=== PATIENT | male | born 1960 | race Caucasian/White ===

== ENCOUNTER 2018-12-19 10:30 | Outpatient (CLI) | payer OTHER ==
[~2018-12-19] VITALS: Ht 165.1 cm; Wt 81.6 kg
[~2018-12-19 10:30] MED LIST: ASP325TEC PO; ATOR80TA75 PO; BNZ40T PO; CARB200T PO; CARB200T5 PO; CARB200T6 PO; CARV6.252 PO; GABA300C PO; HYDR-34 PO; INSA10V1 SC; INSU100I14 SQ; INSU100I29 SQ; INSU100V16 SQ; INSU100V5 SQ; LORA10TA7 PO; METF-478 PO; METF500T4 PO; METF500T8 PO; METO-387 PO; MV,M1TAB4 PO; NIAC100045 PO; OMEG-9 PO; OMEP20CA12 PO; PHEN-633 PO; PHEN100C11 PO; RANI150T46 PO; TAMS0.4C2 PO; TAMS0.4C98 PO; TR1C15 TOP
[2018-12-19] MEDS ORDERED: MV,M1TAB4 PO (10:51)
[2018-12-19] MEDS ORDERED: ASPI-808 PO (10:51)
[2018-12-19] MEDS ORDERED: OMEG-9 PO (10:51)
[2018-12-19] MEDS ORDERED: CARB200T5 PO (10:51)
[2018-12-19] MEDS ORDERED: PHEN100C4 PO (10:51)
[2018-12-19] MEDS ORDERED: GABA-488 PO (10:51)
[2018-12-19] MEDS ORDERED: ATOR80TA76 PO (10:51)
[2018-12-19] MEDS ORDERED: OMEP20TA7 PO (10:51)
[2018-12-19] MEDS ORDERED: INSU100I29 SQ (10:51)
== END 2018-12-19 10:56 ==
LOC: PREOP 10:30
PROVIDERS: ATTEND Specialist
DX: Z01.818 Encounter for other preprocedural examination (principal)

== ENCOUNTER 2018-12-21 06:12 | Day surgery (SDC) | payer OTHER ==
[~2018-12-21] VITALS: Ht 165.1 cm; Wt 81.6 kg
[~2018-12-21 06:12] MED LIST changes: +ASPI-808 PO; +ATOR80TA76 PO; +GABA-488 PO; +OMEP20TA7 PO; +PHEN100C4 PO
--- OUTSIDE RECORDS SUMMARY | 2018-12-21 06:16 | XMS REPORT | Continuity of Care Document ---
Author Organization Unknown Address Unknown Allergies Active Description Code Type Severity Reaction Onset Reported/Identified Relationship to Patient Clinical Status Yes iodine [id number] Drug Allergy Unknown N/A 09/30/2015 Yes levofloxacin [id number] Drug Allergy Unknown N/A 09/30/2015 Yes Penicillins [id number] Drug Allergy Unknown N/A 09/30/2015 Medications There is no data. Problems Date Dx Coded Attending Type Code Diagnosis Diagnosed By 05/30/2013 VIC ALLEN MD Ot 185 MALIGN NEOPL PROSTATE 05/30/2013 VIC ALLEN MD Ot V58.0 ENCOUNTER FOR RADIOTHERAPY 08/29/2013 VIC ALLEN MD Ot 185 MALIGN NEOPL PROSTATE 08/29/2013 VIC ALLEN MD Ot V58.0 ENCOUNTER FOR RADIOTHERAPY 09/11/2014 VIC ALLEN MD Ot 185 09/11/2014 VIC ALLEN MD Ot V58.0 09/17/2014 Ot 959.4 09/17/2014 Ot E000.8 09/17/2014 Ot E849.0 09/17/2014 Ot E928.9 09/17/2014 VIC ALLEN MD Ot 185 09/17/2014 VIC ALLEN MD Ot V58.0 09/17/2014 VIC ALLEN MD Ot 185 09/17/2014 VIC ALLEN MD Ot V58.0 09/17/2014 VIC ALLEN MD Ot 185 09/17/2014 VIC ALLEN MD Ot V58.0 09/19/2014 SAILAJA HILARIO DO Ot 250.02 DIAB ELFEGO WO COMPL, TYPE II OR UNSPEC TY 09/19/2014 SAILAJA HILARIO DO Ot 272.4 HYPERLIPIDEMIA NEC/NOS 09/19/2014 SAILAJA HILARIO DO Ot 414.00 CORON ATHEROSCLER NOS TYPE VESSEL, NATIV 09/19/2014 SAILAJA HILARIO DO Ot V03.82 PROPHYLACTIC VACC AGAINST STREPTOCOCCUS 09/19/2014 SAILAJA HILARIO DO Ot V10.46 HX-PROSTATIC MALIGNANCY 09/19/2014 [facility], SAILAJA Martinez Ot 250.02 09/19/2014 [facility], SAILAJA Juan Ot 272.4 09/19/2014 [facility], SAILAJA Juan Ot 414.00 09/19/2014 [facility], SAILAJA Martinez Ot V03.82 09/19/2014 [facility], SAILAJA Juan Ot V10.46 02/13/2015 [facility], VIC Mclaughlin Ot 185 02/13/2015 ALEJANDRO CERRATO, VIC Mclaughlin Ot V58.0 09/30/2015 ALEJANDRO CERRATO, VIC E Ot 185 09/30/2015 ALEJANDRO CERRATO, VIC Mclaughlin Ot V58.0 10/02/2015 [facility], SAILAJA Martinez Ot E11.9 TYPE 2 DIABETES MELLITUS WITHOUT COMPLIC 10/02/2015 [facility], SAILAJA Martinez Ot E78.5 HYPERLIPIDEMIA, UNSPECIFIED 10/02/2015 [facility], SAILAJA Martinez Ot G40.909 EPILEPSY, UNSP, NOT INTRACTABLE, WITHOUT 10/02/2015 [facility], SAILAJA Martinez Ot I10 ESSENTIAL (PRIMARY) HYPERTENSION 10/02/2015 [facility], SAILAJA Martinez Ot I25.10 [address] DISEASE OF [place] CORONARY 10/02/2015 [facility], SAILAJA Martinez Ot I25.82 CHRONIC TOTAL OCCLUSION OF CORONARY [place] 10/02/2015 [facility], SAILAJA Martinez Ot R55 SYNCOPE AND COLLAPSE 10/02/2015 [facility], SAILAJA Martinez Ot R94.39 ABNORMAL RESULT OF OTHER CARDIOVASCULAR 10/02/2015 [facility], SAILAJA Martinez Ot Z79.4 SENIOR LIVING (CURRENT) USE OF INSULIN 10/02/2015 [facility], SAILAJA Martinez Ot Z79.899 OTHER SENIOR LIVING (CURRENT) DRUG THERAPY 10/02/2015 [facility], SAILAJA Martinez Ot Z95.1 PRESENCE OF AORTOCORONARY BYPASS GRAFT 07/20/2016 [facility] CERRAT[facility], VIC Mclaughlin Ot 185 MALIGN NEOPL PROSTATE 07/20/2016 ALEJANDRO CERRATO, VIC Mclaughlin Ot V58.0 ENCOUNTER FOR RADIOTHERAPY 07/24/2017 VIC ALLEN MD Ot 185 MALIGN NEOPL PROSTATE 07/24/2017 VIC ALLEN MD Ot V58.0 ENCOUNTER FOR RADIOTHERAPY 12/12/2018 A[facility]JAN[facility] CERRATO, VIC E Ot 185 MALIGN NEOPL PROSTATE 12/12/2018 VIC ALLEN MD, Ot V58.0 ENCOUNTER FOR RADIOTHERAPY 12/13/2018 VIC ALLEN MD Ot 185 MALIGN NEOPL PROSTATE 12/13/2018 VIC ALLEN MD, Ot V58.0 ENCOUNTER FOR RADIOTHERAPY Procedures There is no data. Results There is no data. Encounters ACCT No. Visit Date/Time Discharge Status Pt. Type Provider Facility Loc./Unit Complaint [id number] 09/30/2015 04:30:00 10/02/2015 11:50:00 DIS Outpatient SAILAJA HILARIO DO [facility] CATH SYNCOPE,ORTHOSTATIC HYPOTENSION [id number] 09/17/2014 10:30:00 09/19/2014 12:50:00 DIS Inpatient SAILAJA HILARIO DO [facility] 4TH UNCONTROLLED DM, DIZZYNESS,HX OF [place] [id number] 09/06/2013 09:05:00 09/06/2013 23:59:59 CLS Outpatient VIC ALLEN MD [facility] ONC [id number] 07/15/2013 15:07:00 08/29/2013 00:01:00 DIS Outpatient VIC ALLEN MD [facility] ONC [id number] 04/19/2013 08:27:00 05/30/2013 00:01:00 DIS Outpatient VIC ALLEN MD [facility] ONC [id number] 12/21/2018 08:00:00 PEN Preadmit JAMES WILSON MD [facility] SDC CATARACT LEFT EYE [id number] 09/17/2014 10:47:00 Document Registration [id number] 10/29/2010 10:36:00 Document Registration
[2018-12-21 06:30] VITALS: BP 134/75
[2018-12-21] MEDS ORDERED: TIMOLOL MALEATE 0.5% 5 ML (TIMOPTIC) BTL OU PRN (06:30)
[2018-12-21] MEDS ORDERED: LIDOCAINE PF 1% 2 ML AMP IR PRN (06:30)
[2018-12-21] MEDS ORDERED: POVIDONE (BETADINE) OPHTH SOLN 5% 30 ML OP ONE (06:30)
[2018-12-21] MEDS: TETRACAINE 0.5% OPHTH SOLN 4 ML BTL (SINGLE DOSE ONLY) OU PRN ×4 (06:34→06:59)
[2018-12-21] MEDS: CYCLOPENTOLATE 1% (CYCLOGYL) 2 ML DROPS OP SCH ×3 (06:44→06:59)
[2018-12-21] MEDS: PHENYLEPHRINE 10% OPHTH (NEO-SYN) 5 ML BTL OU SCH ×3 (06:44→06:59)
[2018-12-21] MEDS ORDERED: MIDAZOLAM 2 MG/2 ML (VERSED) VIAL ONE (06:48)
--- NOTE | 2018-12-21 07:22 | Ophthalmologist Pre-Op Note ---
Pre-Operative Progress Note H&P Reviewed The H&P was reviewed, patient examined and no changes noted. Date H&P Reviewed: December 21, 2018 Time H&P Reviewed: 07:22 Pre-Op Dx Cataract, Left Eye JAMES WILSON MD December 21, 2018 07:22
--- NOTE | 2018-12-21 07:44 | Ophthalmology Operative Report ---
Cataract removal/placement IOL PREOPERATIVE DIAGNOSIS: Cataract Left Eye POSTOPERATIVE DIAGNOSIS: Cataract Left Eye PROCEDURE: Cataract removal and placement of posterior chamber implant, left eye SURGEON: Miak Wilson ANESTHESIA: Topical with sedation COMPLICATIONS: None ESTIMATED BLOOD LOSS: Minimal DESCRIPTION OF PROCEDURE: After proper informed consent was obtained, the patient, a 58 male, was taken to the Operating Room and the left eye was anesthetized with tetracaine. The left eye was then prepped and draped in the usual manner. A wire lid speculum was placed. A paracentesis was made at the left hand position. Preservative free lidocaine was injected into the anterior chamber followed by viscoelastic. A clear corneal incision was made in the temporal position. A capsulorrhexis was preformed and the central nuclear and cortical material were removed. The posterior capsule was polished and an Frank 24.0 [id number] was placed into the capsular bag. The residual viscoelastic was aspirated and balanced saline solution was injected into the anterior chamber. Moxifloxacin was injected into the anterior chamber. The wound was checked and found to be water tight. The patient tolerated the procedure well without complications. MIKA WILSON MD December 21, 2018 07:43
[2018-12-21 07:51] VITALS: BP 122/86
[2018-12-21] MEDS ORDERED: acetaZOLAMIDE ER 500 MG CAP (DIAMOX SEQUELS) PO ONE (08:00)
--- NOTE | 2018-12-21 10:35 | Anesthesia-General Post-Op ---
MAC Patient Condition Mental Status/LOC: Same as Preop Cardiovascular: Satisfactory Nausea/Vomiting: Absent Respiratory: Satisfactory Pain: Controlled Complications: Absent Post Op Complications Complications None Follow Up Care/Instructions Patient Instructions None needed. Anesthesiology Discharge Order Discharge Order Patient was seen after the procedure and he was doing well, no complaints, stable vital signs, no apparent adverse anesthesia problems. JOHNATHON NICK DO December 21, 2018 10:35
== END 2018-12-21 07:51 | disposition home or self-care (01) ==
LOC: SDC 06:12
PROVIDERS: ATTEND Specialist
DX: H25.12 Age-related nuclear cataract, left eye (principal); E11.36 Type 2 diabetes mellitus with diabetic cataract; I10 Essential (primary) hypertension; E78.00 Pure hypercholesterolemia, unspecified; I25.10 Atherosclerotic heart disease of native coronary artery without angina pectoris; R56.9 Unspecified convulsions; K21.9 Gastro-esophageal reflux disease without esophagitis; Z79.4 Long term (current) use of insulin; Z79.82 Long term (current) use of aspirin; Z79.899 Other long term (current) drug therapy; Z95.1 Presence of aortocoronary bypass graft

== ENCOUNTER 2019-01-23 05:51 | Outpatient (CLI) | payer OTHER ==
[~2019-01-23] VITALS: Ht 165.1 cm; Wt 81.6 kg
== END 2019-01-23 12:18 | disposition home or self-care (01) ==
LOC: PREOP 05:51
PROVIDERS: ATTEND Specialist
DX: Z01.818 Encounter for other preprocedural examination (principal)

== ENCOUNTER 2019-01-25 06:08 | Day surgery (SDC) | payer OTHER ==
[~2019-01-25] VITALS: Ht 165.1 cm; Wt 81.6 kg
[2019-01-25] MEDS ORDERED: POVIDONE (BETADINE) OPHTH SOLN 5% 30 ML OP ONE (06:15)
[2019-01-25] MEDS ORDERED: TIMOLOL MALEATE 0.5% 5 ML (TIMOPTIC) BTL OU PRN (06:15)
[2019-01-25] MEDS ORDERED: LIDOCAINE PF 1% 2 ML AMP IR PRN (06:15)
[2019-01-25] MEDS: TETRACAINE 0.5% OPHTH SOLN 4 ML BTL (SINGLE DOSE ONLY) OU PRN ×4 (06:22→06:43)
[2019-01-25 06:25] VITALS: BP 137/83
[2019-01-25] MEDS: PHENYLEPHRINE 10% OPHTH (NEO-SYN) 5 ML BTL OU SCH ×3 (06:33→06:43)
[2019-01-25] MEDS: CYCLOPENTOLATE 1% (CYCLOGYL) 2 ML DROPS OP SCH ×3 (06:33→06:43)
[2019-01-25] MEDS ORDERED: MIDAZOLAM 2 MG/2 ML (VERSED) VIAL ONE (07:00)
--- NOTE | 2019-01-25 07:03 | Ophthalmologist Pre-Op Note ---
Pre-Operative Progress Note H&P Reviewed The H&P was reviewed, patient examined and no changes noted. Date H&P Reviewed: Jan 25, 2019 Time H&P Reviewed: 07:02 Pre-Op Dx Cataract, Right Eye JAMES WILSON MD Jan 25, 2019 07:02
[2019-01-25] MEDS ORDERED: acetaZOLAMIDE ER 500 MG CAP (DIAMOX SEQUELS) PO ONE (07:30)
--- NOTE | 2019-01-25 07:42 | Ophthalmology Operative Report ---
Cataract removal/placement IOL PREOPERATIVE DIAGNOSIS: Cataract Right Eye POSTOPERATIVE DIAGNOSIS: Cataract Right Eye PROCEDURE: Cataract removal and placement of posterior chamber implant, right eye SURGEON: Mika Wilson ANESTHESIA: Topical with sedation COMPLICATIONS: None ESTIMATED BLOOD LOSS: Minimal DESCRIPTION OF PROCEDURE: After proper informed consent was obtained, the patient, a 58 male, was taken to the Operating Room and the right eye was anesthetized with tetracaine. The right eye was then prepped and draped in the usual manner. A wire lid speculum was placed. A paracentesis was made at the left hand position. Preservative free lidocaine was injected into the anterior chamber followed by viscoelastic. A clear corneal incision was made in the temporal position. A capsulorrhexis was preformed and the central nuclear and cortical material were removed. The posterior capsule was polished and Frank [id number] 23.5 IOL was placed into the capsular bag. The residual viscoelastic was aspirated and balanced saline solution was injected into the anterior chamber. Moxifloxacin was injected into the anterior chamber. The wound was checked and found to be water tight. The patient tolerated the procedure well without complications. MIKA WILSON MD Jan 25, 2019 07:42
[2019-01-25 07:55] VITALS: BP 128/74
--- NOTE | 2019-01-25 09:51 | Anesthesia-General Post-Op ---
MAC Patient Condition Mental Status/LOC: Same as Preop Cardiovascular: Satisfactory Nausea/Vomiting: Absent Respiratory: Satisfactory Pain: Controlled Complications: Absent Post Op Complications Complications None Follow Up Care/Instructions Patient Instructions None needed. Anesthesiology Discharge Order Discharge Order Patient is doing well, no complaints, stable vital signs, no apparent adverse anesthesia problems. No complications reported per nursing. ADILENE MANCUSO CRNA Jan 25, 2019 09:50
== END 2019-01-25 07:55 | disposition home or self-care (01) ==
LOC: SDC 06:08
PROVIDERS: ATTEND Specialist
DX: H25.11 Age-related nuclear cataract, right eye (principal); E11.36 Type 2 diabetes mellitus with diabetic cataract; I25.10 Atherosclerotic heart disease of native coronary artery without angina pectoris; E78.00 Pure hypercholesterolemia, unspecified; R56.9 Unspecified convulsions; K21.9 Gastro-esophageal reflux disease without esophagitis; Z79.4 Long term (current) use of insulin; Z79.82 Long term (current) use of aspirin; Z79.899 Other long term (current) drug therapy
CPT/HCPCS: 82962

== ENCOUNTER → 2019-08-26 | Outpatient (CLI) | payer OTHER ==
[~2019-08-26] MED LIST changes: +RANI-613 PO; -RANI150T46 PO
--- NOTE | 2019-08-26 10:42 | Diagnostic Imaging Report ---
Indication: Lower respiratory infection PA and lateral chest There are postoperative changes from CABG surgery. Heart size and pulmonary vascularity are normal. Lungs are clear. There are no effusions or pneumothoraces. IMPRESSION: No acute abnormalities in the chest Dictated by: Dictated on workstation # [id number]
== END ==
LOC: RAD 10:09
PROVIDERS: ATTEND Family Medicine
DX: R05 Cough (principal); Z95.1 Presence of aortocoronary bypass graft
CPT/HCPCS: 71046

== ENCOUNTER 2023-04-20 05:35 | Outpatient (CLI) | payer OTHER ==
[~2023-04-20] VITALS: Ht 165.1 cm; Wt 83.6 kg
[~2023-04-20 05:35] MED LIST changes: +INSU100I30 SQ; -METO-387 PO; +MTP25TSR PO; +OMEP20TA56 PO; -OMEP20TA7 PO; -TAMS0.4C98 PO; +TMSL.4C PO
[2023-04-20] MEDS ORDERED: FERR240T15 PO (17:21)
[2023-04-20] MEDS ORDERED: EZET10TA49 PO (17:21)
[2023-04-20] MEDS ORDERED: ACET-93 PO (17:21)
[2023-04-20] MEDS ORDERED: TMSL.4C PO (17:21)
[2023-04-20] MEDS ORDERED: INSU100I32 SQ (17:21)
== END 2023-04-20 17:33 | disposition home or self-care (01) ==
LOC: PREOP 05:35
PROVIDERS: ATTEND Specialist
DX: Z01.818 Encounter for other preprocedural examination (principal)

== ENCOUNTER 2023-04-28 09:26 | Day surgery (SDC) | payer OTHER ==
[~2023-04-28] VITALS: Ht 165.1 cm; Wt 83.6 kg
[~2023-04-28 09:26] MED LIST changes: +ACET-93 PO; +EZET10TA49 PO; +FERR240T15 PO; +INSU100I32 SQ
[2023-04-28] MEDS ORDERED: TROPICAMIDE 1% OPH SOLN (MYDRIACYL) 15 ML BTL OU PRN (10:00)
[2023-04-28] MEDS ORDERED: PHENYLEPHRINE 10% OPHTH SOLN 5 ML BTL OU PRN (10:00)
[2023-04-28] MEDS: TETRACAINE 0.5% OPHTH SOLN 4 ML BTL (SINGLE DOSE ONLY) OU PRN ×3 (10:08→10:14)
[2023-04-28 10:15] VITALS: BP 124/71
--- NOTE | 2023-04-28 10:33 | Ophthalmologist Pre-Op Note ---
Pre-Operative Progress Note H&P Reviewed The H&P was reviewed, patient examined and no changes noted. Date H&P Reviewed: Apr 28, 2023 Time H&P Reviewed: 10:32 Pre-Op Dx Secondary Cataract, Right Eye JAMES WILSON MD Apr 28, 2023 10:33
--- NOTE | 2023-04-28 10:58 | Ophthalmology Operative Report ---
YAG Capsulotomy PREOPERATIVE DIAGNOSIS: Secondary Cataract Left Eye POSTOPERATIVE DIAGNOSIS: Secondary Cataract Left Eye PROCEDURE: YAG Capsulotomy, left eye SURGEON: Mika Wilson ANESTHESIA: Topical anesthesia COMPLICATIONS: None ESTIMATED BLOOD LOSS: Minimal DESCRIPTION OF PROCEDURE: After proper informed consent was obtained, the patient's, a 62 male left eye received one drop of Tropicamide and one drop of Tetracaine. The patient was then placed at the YAG laser and using a power of [ 4.5] millijoules and [21 ] bursts were used to fashion a central capsulotomy. The patient tolerated the procedure well without complications. MIKA WILSON MD Apr 28, 2023 10:58
== END 2023-04-28 10:43 | disposition home or self-care (01) ==
LOC: SDC 09:26
PROVIDERS: ATTEND Specialist
DX: E11.36 Type 2 diabetes mellitus with diabetic cataract (principal); H26.40 Unspecified secondary cataract